=== PATIENT | female | born 1995 | race Caucasian/White ===

== ENCOUNTER 2023-04-17 14:00 | Emergency (ER) | payer BC, MEDICAID ==
[2023-04-17] MEDS ORDERED: Sodium Chloride 0.9% 10 ML Syringe FLUSH PRN (14:03)
[2023-04-17 14:14] LABS: BASOPHILS ABSOLUTE AUTO 0.01 K/uL (0.00-0.20); BASOPHILS PERCENT AUTO 0.2 % (0.0-2.0); EOSINOPHILS ABSOLUTE AUTO 0.01 K/uL (0.00-0.50); EOSINOPHILS PERCENT AUTO 0.2 % (0.0-5.0); HEMATOCRIT 41.7 % (34.0-46.0); HEMOGLOBIN 14.2 g/dL (11.7-15.5); LYMPHOCYTES ABSOLUTE AUTO 0.68 K/uL (0.50-3.50); LYMPHOCYTES PERCENT AUTO 12.1 % (10.0-50.0); MEAN CORPUSCULAR HEMOGLOBIN 29.6 pg (28.2-33.3); MEAN CORPUSCULAR HGB CONC 34.1 g/dL (31.7-36.0); MEAN CORPUSCULAR VOLUME 87.1 fL (84.0-98.0); MONOCYTES ABSOLUTE AUTO 0.55 K/uL (0.00-1.00); MONOCYTES PERCENT AUTO 9.8 % (2.0-14.0); NEUTROPHILS ABSOLUTE AUTO 4.38 K/uL (1.40-7.00); NEUTROPHILS PERCENT AUTO 77.7 % (45.0-80.0); PLATELET COUNT,PLT 186 K/uL (150-350); RED BLOOD CELL COUNT 4.79 M/uL (3.77-5.09); RED CELL DISTRIBUTION WIDTH 14.1 % (11.2-14.1); WHITE BLOOD CELL COUNT,WBC 5.6 K/uL (4.0-10.2)
[2023-04-17] MEDS ORDERED: Ondansetron 4 MG/2 ML SDV IVPUSH ONE (14:15)
[2023-04-17] MEDS ORDERED: Lactated Ringers 1,000 ML IV ONE (14:15)
[2023-04-17] MEDS ORDERED: Acetaminophen 325 MG Tab PO ONE (14:31)
[2023-04-17 14:34] LABS: ALANINE AMINOTRANSFERASE,ALT 32 U/L (12-78); ALBUMIN 2.7 g/dL (3.4-5.0); ALKALINE PHOSPHATASE 94 IU/L (46-116); ANION GAP 11.4 meq/L (7-15); ASPARTATE AMNIOTRANSFERASE,AST 24 U/L (15-37); BILIRUBIN TOTAL 0.4 mg/dL (0.2-1.0); BLOOD UREA NITROGEN,BUN 7 mg/dL (7-18); CALCIUM 8.5 mg/dL (8.5-10.1); CARBON DIOXIDE,CO2 22.6 mmol/L (21.0-32.0); CHLORIDE,CL 105 mmol/L (98-107); CREATININE 0.66 mg/dL (0.51-1.17); ESTIMATED GFR 122 mL/min (>=60); GLUCOSE RANDOM 76 mg/dL (70-99); POTASSIUM,K 3.5 mmol/L (3.5-5.1); PROTEIN TOTAL,TP 7.1 g/dL (6.4-8.2); SODIUM,NA 139 mmol/L (136-145)
== END 2023-04-17 16:07 | disposition home or self-care (01) ==
LOC: LL.ED 14:00
DX: A08.4 Viral intestinal infection, unspecified (principal)
CPT/HCPCS: 36415; 80053; 85025; 96361; 96374; 99284; A9270; J2405; J7120